=== PATIENT | male | born 1990 | race African-American/Black ===

== ENCOUNTER 2018-08-12 20:07 | Emergency (ER) | payer SELFPAY ==
[~2018-08-12] VITALS: Ht 175.3 cm; Wt 78.9 kg
--- NOTE | 2018-08-12 20:10 | NUR ---
BBRA 89 FROM STORE, BIZARRE BEHAVIOR, COMBATIVE, IN DEEP SLEEP, SEDATED, UNABLE TO WAKE UP, VS STABLE O2 SAT' 99 % VS STABLE, NO FACIAL GRIMMANCING NOTED, TRIAGED, PLACED ON ER BED 6, [place] [employer] ESCORTED PT, BILATERALL WRIST RESTRAINS SECURED, D/T PT BEING DANGER TO SELF AND OTHERS, 1:1 SITTER ASIGNED AT THIS TIME.
[2018-08-12] MEDS ORDERED: IV NS 0.9% 1,000 ML BAG IV ONE (20:30)
--- NOTE | 2018-08-12 20:30 | NUR ---
SEEN AND EVAL BY DR HOPPER, WITH ORDERS ENTERED, AND CARRIED OUT.
[2018-08-12 20:32] LABS: BASOPHILS % (AUTO) 0.3 % (0.0-2.0); EOSINOPHILS % (AUTO) 2.2 % (0.0-6.0); HEMATOCRIT 41 % (39-51); HEMOGLOBIN 13.9 g/dL (13.5-17.5); LYMPHOCYTES # (AUTO) 1.7 /CMM (0.8-4.8); MEAN CORPUSCULAR HGB CONC 34 g/dl (31.0-36.0); MEAN CORPUSCULAR VOLUME 88 fL (80-96); MONOCYTES # (AUTO) 0.7 /CMM (0.1-1.30); MONOCYTES % (AUTO) 9.8 % (2.0-12.0); NEUTROPHILS # (AUTO) 4.5 /CMM (1.8-8.9); NEUTROPHILS % (AUTO) 63.7 % (43.0-81.0); PLATELET COUNT (AUTO) 244 /CMM (150-450); RED BLOOD CELL COUNT(AUTO) 4.66 MIL/uL (4.5-6.0)
[2018-08-12 20:41] LABS: CALCIUM, SERUM 8.6 mg/dL (8.5-10.1); CARBON DIOXIDE 27 mmol/L (21-32); CHLORIDE 108 mmol/L (98-107); CREATININE 1.1 mg/dL (0.6-1.3); GLUCOSE 128 mg/dL (74-106); POTASSIUM 3.5 mmol/L (3.5-5.1); SODIUM SERUM 143 mmol/L (136-145); UREA NITROGEN, BLOOD 15 mg/dL (7-18)
[2018-08-12 20:46] LABS: ALANINE AMINOTRANSFERASE 25 U/L (12-78); ALBUMIN 3.5 g/dL (3.4-5.0); ALKALINE PHOSPHATASE 85 U/L (46-116); ASPARTATE AMINOTRANSFERASE 23 U/L (15-37); BILIRUBIN,DIRECT 0.1 mg/dL (0.0-0.2); BILIRUBIN,TOTAL 0.2 mg/dL (0.2-1.0)
[2018-08-12 20:47] LABS: ACETAMINOPHEN < 10 ug/ml (10-30); ALCOHOL, BLOOD < 3 mg/dL (0-0); SALICYLATE 1.2 mg/dL (2.8-20.0)
[2018-08-12 20:53] LABS: APPEARANCE,URINE Clear (CLEAR); BILIRUBIN,URINE Negative (NEGATIVE); BLOOD, URINE Negative Ery/uL (NEGATIVE); COLOR,URINE Yellow (YELLOW); KETONES,URINE Trace (NEGATIVE); LEUKOCYTE ESTERASE ,URINE Negative (NEGATIVE); NITRITE, URINE Negative (NEGATIVE); PH,URINE 5.5 (5.0-8.0); PROTEIN,URINE Trace mg/dl (NEGATIVE); UGLUCOSE Negative (NEGATIVE)
[2018-08-12 21:04] LABS: RBC,URINE NONE SEEN /HPF (0-2); WBC,URINE NONE SEEN /HPF (0-3)
[2018-08-12 21:05] LABS: BACTERIA,URINE None seen /HPF (None Seen); MUCUS,URINE Few /LPF (None Seen); SQUAMOUS EPITHELIAL CELL,UR None Seen /HPF (None Seen)
--- NOTE | 2018-08-12 22:22 | NUR ---
PT STILL ASLEEP, HOB ELEVATED, IV FLUIDS GIVEN AND RE ASSESSED, VS STABLE, NC IN PLACE, CONT' ON 1:1 SITTER.
--- NOTE | 2018-08-12 22:45 | NUR ---
Patient discharged to home in stable condition. ambulatory. Written and verbal after care instructions given and rx . Patient verbalizes understanding of instruction. Addendum: 08/12/18 at 2301 by TITO wrong entry. cancel.
--- NOTE | 2018-08-12 23:34 | NUR ---
NOTED PT AWAKE, ASSESSED PT AOX3, ABLE TO VERBALIZE NAME, DATE OF AND PLACE, HOWEVER, DOES NOT REMEMBER HOW HE GOT HERE, DENIES ANY SI EVER, AND DOESNOT REMEMBER TRYING TO HARM SELF, OR ANY BODY ELSE FOR THAT MATTER. BILATERAL WRIST RESTRAINS RELEASED, VICTORINO [employer]GE NOTIFIED WELL ER MD FLORES NOTIFIED. AWAITING TO RE-EVAL PT. CONT' ON 1:1 SITTER ON ER BED.
--- NOTE | 2018-08-13 01:50 | NUR ---
PT AOX4, ABLE TO GIVE UPDATE ON NAME, GILBERTO JUAN PRESLEY, 1990, ADMISSION OFFICE UPDATED, NOTIFIED.
--- NOTE | 2018-08-13 02:55 | NUR ---
PT ASLEEP AWAITING TO BE RE-EVALED TO BE CLEARED FOR DC.
--- NOTE | 2018-08-13 04:57 | NUR ---
PT AWAKE, AOX4, CALLED FOR FRIEND TO [employer], WANTS TO EVAL FOR DC. NOTIFIED.
--- NOTE | 2018-08-13 05:17 | NUR ---
Patient discharged to home in stable condition, aox4 during re-eval by Dr Munguia, vs stable, able to ambulate with stable gait. Written and verbal after care instructions given, on substance abuse. Patient verbalizes understanding of instruction.
[2018-08-13 05:21] VITALS: BP 126/76
== END 2018-08-13 05:22 | disposition home or self-care (01) ==
LOC: ER 20:12 → EDBD 20:12 → ER 08-13 05:22
DX: R41.82 Altered mental status, unspecified (principal)
CPT/HCPCS: 36415; 80048; 80076; 80305; 80307; 80329; 81001; 85025; 96360; 99284; G0480; J7030; 81000-TC